=== PATIENT | male | born 1995 | race Caucasian/White ===

== ENCOUNTER 2020-06-18 23:28 | Emergency (ER) | payer MEDICAID, OTHER ==
[~2020-06-18] VITALS: Ht 182.9 cm; Wt 124.7 kg
[2020-06-18 23:40] VITALS: BP_SYST 175
--- NOTE | 2020-06-18 23:40 | NUR ---
PT TO BED 8 FOR EVALUATION
--- NOTE | 2020-06-18 23:50 | NUR ---
# 20 gauge angiocath placed to LEFT AC. Use of asceptic technique. Opsite placed over site. Blood return noted. Blood, blood cultures, lactic for lab drawn from site. Flushed with 10 cc of normal saline. No evidence of infiltration noted. Patient tolerated well.
[2020-06-18 23:58] LABS: BILIRUBIN,URINE 1+ (NEGATIVE); BLOOD, URINE 3+ (NEGATIVE); CLARITY/URINE CLOUDY (CLEAR); COLOR,URINE YELLOW (YELLOW); GLUCOSE,URINE NEGATIVE (NEGATIVE); KETONES,URINE TRACE (NEGATIVE); LEUKOCYTE ESTERASE ,URINE NEGATIVE (NEGATIVE); NITRITE, URINE NEGATIVE (NEGATIVE); PH,URINE 6.5 (5.0-8.0); PROTEIN URINE 2+ (NEGATIVE); UROBILINOGEN,URINE 0.2 (0.2-1.0)
[2020-06-19] MEDS ORDERED: KETOROLAC TROMETHAMINE 30 MG VIAL IVP ONE
[2020-06-19] MEDS ORDERED: ONDANSETRON HCL 4 MG/2 ML VIAL IVP ONE
--- NOTE | 2020-06-19 | NUR ---
ER Dr. Ray at bedside examining patient.
--- NOTE | 2020-06-19 | NUR ---
pt a&o x4 from home c/o left side flank pain that started about two hours ago. pt reports nausea and vomiting x4 episodes. pt states he has drank 4 water bottles today but has dark jeffery urine. pt reports pain stays in place and does not radiate. pt rates pain 9 out of 10.
[2020-06-19 00:08] LABS: BACTERIA,URINE FEW /HPF (None Seen); RBC,URINE 50-80 /HPF (0-3); WBC,URINE 0-3 /HPF (0-3)
--- NOTE | 2020-06-19 00:19 | NUR ---
Patient transported to radiology via ambulatory, accompanied by
[2020-06-19 00:24] LABS: BASOPHILS % (AUTO) 0.4 % (0.0-2.0); EOSINOPHILS # (AUTO) 0.1 K/uL (0.0-0.4); EOSINOPHILS % (AUTO) 1.6 % (0.0-4.0); HEMATOCRIT 44.8 % (36-54); HEMOGLOBIN 15.6 g/dL (14.0-18.0); LYMPHOCYTES # (AUTO) 2.9 K/uL (1.0-5.5); LYMPHOCYTES % (AUTO) 32.9 % (20.5-51.5); MEAN CORPUSCULAR HEMOGLOBIN 29 pg (27-31); MEAN CORPUSCULAR HGB CONC 35 % (32-36); MEAN CORPUSCULAR VOLUME 82 fL (79.0-98.0); MONOCYTES # (AUTO) 1.1 K/uL (0.0-1.0); MONOCYTES % (AUTO) 12.2 % (1.7-9.3); NEUTROPHILS # (AUTO) 4.7 K/uL (1.8-7.7); NEUTROPHILS % (AUTO) 52.9 % (40.0-70.0); PLATELET COUNT (AUTO) 237 K/uL (130-430); RED BLOOD CELL COUNT(AUTO) 5.45 MIL/uL (4.2-6.2); RED CELL DISTRIBUTION WIDTH 13.9 % (9.0-15.0); WHITE BLOOD COUNT (AUTO) 8.9 K/uL (4.8-10.8)
[2020-06-19 00:28] LABS: CALCIUM 9.3 mg/dL (8.4-11.0); CREATININE 0.96 mg/dL (0.55-1.30); POTASSIUM 3.4 mmol/L (3.5-5.1)
--- NOTE | 2020-06-19 00:29 | NUR ---
Returned from radiology, back to [facility].
[2020-06-19 00:33] LABS: ALBUMIN 4.6 g/dL (3.4-4.8); TOTAL BILIRUBIN 0.5 mg/dL (0.0-1.0)
[2020-06-19 00:37] LABS: PROTHROMBIN TIME 10.7 SECS (9.5-12.5)
[2020-06-19] MEDS ORDERED: MORPHINE 4 MG/ML INJ. SYRINGE ONE ×2 (00:37→02:08)
--- NOTE | 2020-06-19 00:43 | NUR ---
Rosetta mcqueen in ED - 06/19/20 at 0251 by RENÉ pt given morphine IVP, pt did not like the way it made her feel so morphine was stopped being given after half a dose.
--- NOTE | 2020-06-19 00:43 | NUR ---
pt given morphine IVP, pt did not like the way it made him feel so morphine was stopped being given after half a dose.
[2020-06-19] MEDS ORDERED: MORPHINE 4 MG/ML INJ. SYRINGE IVP ONE ×2 (00:45→02:00)
--- NOTE | 2020-06-19 01:13 | NUR ---
Patient resting quietly. No acute distress noted. Patient reports pain decreased to 5 out of 10.
[2020-06-19] MEDS ORDERED: NACL 0.9% 1,000 ML IV ONE ×2 (02:00)
--- NOTE | 2020-06-19 02:20 | NUR ---
pt medicated per md order. pt tolerated well.
[2020-06-19 03:33] VITALS: BP_SYST 132
--- NOTE | 2020-06-19 03:34 | NUR ---
Patient given written and verbal discharge instructions and verbalizes understanding. ER MD discussed with patient the results and treatment provided. Patient in stable condition. ID arm band removed. IV catheter removed intact and dressing applied, no active bleeding. Rx of flomax, ibuprofen, and norco given. Patient educated on pain management and to follow up with PMD. Pain Scale 4/10. Opportunity for questions provided and answered. Medication side effect fact sheet provided.
== END 2020-06-19 03:33 | disposition home or self-care (01) ==
LOC: SED 23:28
DX: N20.0 Calculus of kidney (principal)
CPT/HCPCS: 36415; 74176; 76376; 80053; 81000; 85025; 85610; 96361; 96374; 96375; 96376; 99291; J1885; J2270; J2405; J7030